=== PATIENT | female | born 1945 | race Caucasian/White ===

== ENCOUNTER 2018-02-22 14:48 | Observation (INO) ==
[2018-02-22] MEDS ORDERED: hydrALAZINE 10 MG TABLET PO PRN (17:59)
[2018-02-22] MEDS ORDERED: Naloxone 0.4 MG/ML INJ IVP PRN (18:02)
--- NOTE | 2018-02-22 18:13 | Internal Med History&Physical ---
Date of Encounter: 02/22/18 Time of Encounter: 18:06 Internal Medicine - H&P: HPI Chief complaint: atypical chest pain; HTN urgency Admitted From: Home Plans for Post Hospital Care: Home History of present illness: Ms. Jim is a 72 year old female with a PMH of HTN, Hepatitis, and COPD. She presents to [facility] with c/o atypical, midsternal dull chest pressure without radiation rated 3/10. She admits to lightheadedness, orthopnea, and mild h/a but denies any dyspnea, vision changes, N/V/D, unilateral extremity swelling or pain. She denies any aggravating or alleviating factors. She reports that the chest pressure began last night but got progressively worse this morning. She decided to check her BP and notes that she was hypertensive with BP in 200's/100's. She then decided to seek care at an urgent care. While at she was given 324 chewable ASA and sent to [facility] for further evaluation. EKG completed at [facility] was without ischemic changes. Initial troponin was < 0.03. She was still having HTN urgency and she was transferred to [facility] for further monitoring. During my assessment she denies any prior cardiac history. She does admit to having an episode of chest pain approximately 10 years ago while in [place]. She had a negative stress during that workup and has had no issues since. She is being admitted for further observation of HTN urgency and workup of atypical chest pain. Past Med Surg Social Fam HX - Past Medical History Medical history: COPD, hepatitis, hypertension, other Psychiatric history: no psych history - Past Surgical History Surgical History: cholecystectomy Additional surgical history: breast biopsy, bladder sling - Social History Smoking Status: Former smoker Smokeless Tobacco Status: No Alcohol use: occasionally Drug use: none - Family History Mother Living Status: Hx Family Cardiac Disorders: Yes Hx Family Endocrine Disorder: Yes Father Hx Family Endocrine Disorder: Yes (DM) Internal Medicine - H&P: Meds Atenolol 50 mg PO DAILY 02/22/18 [History] Desoximetasone 02/22/18 [History] Ventolin Hfa 02/22/18 [History] amLODIPine 5 mg PO DAILY 02/22/18 [History] Allergy/AdvReac Type Severity Reaction Status Date / Time Sulfa (Sulfonamide Allergy Anaphylaxis Verified 02/22/18 13:23 Antibiotics) All Systems PM: A 10-system review of systems was performed and is negative for pertinent findings except as documented above in the HPI. - Constitutional Constitutional: as per HPI - Cardiovascular Cardiovascular ROS IM: as per HPI - Respiratory Respiratory: as per HPI - Gastrointestinal Gastrointestinal: as per HPI - Genitourinary Genitourinary: as per HPI - Musculoskeletal Musculoskeletal ROS IM: as per HPI - Integumentary Integumentary IM: as per HPI - Neurological Neurological ROS: as per HPI - Constitutional Vitals: Temp Pulse Resp BP Pulse Ox 97.6 F 54 18 176/97 96 02/22/18 17:19 02/22/18 17:19 02/22/18 17:19 02/22/18 18:00 02/22/18 17:19 General appearance: Present: A&O X 3 Exam: see exam - Head Head exam: Present: atraumatic, normocephalic - Eye Eye exam: Present: PERRL, conjuntiva pink, sclera anicteric Pupils: Present: PERRL - Neck Neck exam general surgery: Present: supple, trachea midline. Absent: lymphadenopathy - Respiratory Respiratory exam: Present: CTAB. Absent: accessory muscle use, chest wall tenderness, rales, rhonchi, wheezes - Cardiovascular Cardiovascular exam: Present: bradycardia, +S1, +S2. Absent: diastolic murmur, gallop, rubs, systolic murmur - GI/Abdominal GI/Abdominal exam: Present: normal bowel sounds, soft, no peritoneal signs. Absent: distended, tenderness - Extremities Exam Extremities exam: Present: warm, radial pulses palpable and symmetrical. Absent: calf tenderness, cyanotic, pedal edema - Neurological Exam Neurological exam: Present: CN II-XII intact, oriented X3, no focal deficits. Absent: pronater drift, facial droop, speech deficit - Skin Skin exam: Present: dry, intact Internal Med - H&P Results - EKG Data -: EKG Interpreted by Myself EKG shows normal: sinus rhythm Rate: bradycardia - EKG Data Prior EKG available for review: no EKG comments: Sinus bradycardia without ischemic changes per my review 02/22/18 18:14 - Impressions per my review CXR is without acute process - Assessment and plan (1) Chest pain Current Visit: No Status: Acute Assessment and plan: Atypical Chest pain/pressure which began yesterday No prior history of CAD Admitted with hypertensive urgency; likely contributing to pressure EKG with help ischemic changes, initial troponin negative Continue to trend troponins Cardiogram in the morning Control BP; responded to 1 when necessary dose of IV hydralazine, start oral hydralazine Continue beta nupur at current dose, can uptitrate due to bradycardia We will increase Norvasc that morning dose to 10 mg daily Continue monitor on telemetry Recent lipid panel including hypertriglyceridemia otherwise normal Subcutaneous heparin for DVT prophylaxis Recheck labs in the morning echo in am Qualifiers: Chest pain type: unspecified Qualified Code(s): R07.9 - Chest pain, unspecified (2) Hypertensive urgency Current Visit: Yes Status: Acute Assessment and plan: etiology unclear denies missing any doses of anti-HTN meds denies any recent medication changes reports normal SBP 130's but admits she does not regularly check it SBP in 200's at [facility] and 190's on arrival to [facility] improved to 170's with 10mg IV Hydralazine; continue PRN and monitor cannot increase BB dose with bradycardia start oral hydralazine Continue norvasc but increase dose to 10mg daily consider starting nicardipine gtt if HTN persists (3) COPD (chronic obstructive pulmonary disease) Current Visit: Yes Status: Acute Assessment and plan: per hx not in acute exacerbation Qualifiers: Qualified Code(s): J44.9 - Chronic obstructive pulmonary disease, unspecified (4) Hypertension Current Visit: No Status: Acute Assessment and plan: as above Qualifiers: Hypertension type: unspecified Qualified Code(s): I10 - Essential (primary) hypertension (5) New-onset angina Current Visit: No Status: Acute Assessment and plan: as above - Time Spent With Patient Total time spent is greater than 50% in coordination of care (as documented) at patient's floor/unit and/or counseling patient: less than 15 minutes
[2018-02-22] MEDS ORDERED: Ibuprofen 400 MG TABLET PO ONE (21:29)
[2018-02-23 00:55] LABS: Hematocrit 43.5 % (35.3-44.9); Hemoglobin 14.6 g/dL (11.5-15.4); Mean Corpuscular HGB Conc 33.6 g/dL (31.6-35.5); Mean Corpuscular Hemoglobin 32.6 pg (28.0-33.3); Mean Corpuscular Volume 97.1 fL (83.0-100.0); Mean Platelet Volume 9.9 fL (9.4-12.4); Platelet Count 129 K/mcL (140-400); Red Blood Count 4.48 M/mcL (3.82-4.97); Red Cell Distribution Width 13.8 % (11.5-14.5)
[2018-02-23 01:12] LABS: BUN/Creatinine Ratio 10 (6-26); Blood Urea Nitrogen 7 mg/dL (8-23); Calcium 9.4 mg/dL (8.6-10.3); Carbon Dioxide 25 mEq/L (23-29); Chloride 103 mEq/L (98-107); Glucose 149 mg/dL (70-105); Osmolality,Calculated 287 (280-300); Potassium 3.6 mEq/L (3.5-5.1); Sodium 138 mEq/L (136-145); eGFR For Non-African Americans > 60 (> 60)
[2018-02-23] MEDS: amLODIPine 5 MG TABLET PO SCH (08:10)
--- NOTE | 2018-02-23 08:33 | Internal Med Progress Note ---
Hospitalist Progress Note - Encounter Date of Encounter: 02/23/18 Time of Encounter: 08:31 - Subjective Interval History: Skin exam the bedside today. Admitted yesterday for atypical chest pain/pressure and hypertensive urgency. She reports that the chest pressure has subsided. Blood pressure has improved with the addition of losartan and increase in Norvasc dose. She does remain mildly hypertensive, require further monitoring and observation overnight especially in the setting of increased antihypertensive agents. - Exam Vitals: Temp Pulse Resp BP Pulse Ox 97.7 F 59 16 164/100 92 02/23/18 08:27 02/23/18 08:27 02/23/18 08:27 02/23/18 08:27 02/23/18 08:27 Exam: PHYSICAL EXAMINATION: GENERAL: The patient is an elderly female , NAD, and O 3 HEENT: Head is normocephalic and atraumatic. Extraocular muscles are intact. Pupils are equal, round, and reactive to light and accommodation. NECK: Supple. No carotid bruits. No lymphadenopathy or thyromegaly. LUNGS: Clear to auscultation B/L AP and L. HEART: Regular rate and rhythm, S1, S2 without murmur, rubs or gallops. No chest wall tenderness, symmetrical and Claudio, adequate rise and fall, ABDOMEN: Soft, nontender, and nondistended. Positive bowel sounds. No hepatosplenomegaly was noted. EXTREMITIES: Without any cyanosis, clubbing, rash, lesions or edema. NEUROLOGIC: Cranial nerves II through XII are grossly intact. PSYCHIATRIC: Appropriate affect, denies SI/HI, without agitation or anxiety SKIN: No ulceration or induration present. - Assessment and Plan (1) Chest pain Current Visit: No Status: Resolved Assessment and Plan: Atypical Chest pain/pressure which began yesterday No prior history of CAD Admitted with hypertensive urgency; likely contributing to pressure EKG with help ischemic changes, initial troponin negative Continue to trend troponins Cardiogram in the morning Control BP; responded to 1 when necessary dose of IV hydralazine, start oral hydralazine Continue beta nupur at current dose, can uptitrate due to bradycardia We will increase Norvasc that morning dose to 10 mg daily Continue monitor on telemetry Recent lipid panel including hypertriglyceridemia otherwise normal Subcutaneous heparin for DVT prophylaxis Recheck labs in the morning echo in am 02/23--reports that she is no longer having chest pain. Clinically, the patient remains stable and blood pressure is improving. I believe that the hypertensive urgency was resulting in the chest pressure sensations as the pain/pressure did resolve with improvement in blood pressure. She will need further monitoring and observation overnight for further control of BP and titration of anti hypertensive agents. (2) Hypertensive urgency Current Visit: Yes Status: Acute Assessment and Plan: etiology unclear denies missing any doses of anti-HTN meds denies any recent medication changes reports normal SBP 130's but admits she does not regularly check it SBP in 200's at [facility] and 190's on arrival to [facility] improved to 170's with 10mg IV Hydralazine; continue PRN and monitor cannot increase BB dose with bradycardia start oral hydralazine Continue norvasc but increase dose to 10mg daily consider starting nicardipine gtt if HTN persists 02/23--start patient on losartan and increased dose of Norvasc. Continue to monitor. Blood pressure improving (3) COPD (chronic obstructive pulmonary disease) Current Visit: Yes Status: Acute Assessment and Plan: Per history, not in acute exacerbation (4) Hypertension Current Visit: No Status: Acute Assessment and Plan: As above (5) New-onset angina Current Visit: No Status: Resolved DVT Prophylaxis: Ambulate and increase activity - Time Spent with Patient Total time spent is greater than 50% in coordination of care (as documented) at patient's floor/unit and/or counseling patient: less than 15 minutes Plan of Care Discussed with: patient Internal Medicine: Result - Labs CBC & Chem 7: 02/23/18 00:40 02/23/18 00:40 Labs: Short CBC 02/23/18 Range/Units 00:40 WBC 6.5 (4.3-11.1) K/mcL Hgb 14.6 (11.5-15.4) g/dL Hct 43.5 (35.3-44.9) % Plt Count 129 L (140-400) K/mcL BMP 02/23/18 00:40 Sodium 138 Potassium 3.6 Chloride 103 Carbon Dioxide 25 BUN 7 L Creatinine 0.70 Glucose 149 H Calcium 9.4 Cardiac Enzymes 02/22/18 02/23/18 02/23/18 Range/Units 18:29 00:40 05:56 Troponin I < 0.03 < 0.03 < 0.03 (< 0.04) ng/mL Consult Discharge Plan - Plan Referrals: Delano Mckeon MD [Primary Care Provider] - (1) Chest pain Qualifiers: Chest pain type: unspecified Qualified Code(s): R07.9 - Chest pain, unspecified (3) COPD (chronic obstructive pulmonary disease) Qualifiers: Qualified Code(s): J44.9 - Chronic obstructive pulmonary disease, unspecified (4) Hypertension Qualifiers: Hypertension type: unspecified Qualified Code(s): I10 - Essential (primary) hypertension
[2018-02-23] MEDS ORDERED: hydrALAZINE 25 MG TABLET PO SCH (18:23)
[2018-02-24 07:09] VITALS: BP 135/77
[2018-02-24] MEDS: amLODIPine 5 MG TABLET PO SCH (08:11)
[2018-02-24 08:40] LABS: eGFR For Non-African Americans > 60 (> 60)
--- NOTE | 2018-02-24 09:03 | Discharge Summary ---
- NOTES TO OUTPATIENT PROVIDER Notes to Outpatient Provider: basic d/c f/u Date of Encounter: 02/24/18 Time of Encounter: 09:00 - Discharge Diagnosis (1) Chest pain Priority: Primary Status: Ruled-out Qualifiers: Chest pain type: unspecified Qualified Code(s): R07.9 - Chest pain, unspecified (2) Hypertensive urgency Priority: Secondary Status: Resolved (3) COPD (chronic obstructive pulmonary disease) Priority: Secondary Status: Acute Qualifiers: Qualified Code(s): J44.9 - Chronic obstructive pulmonary disease, unspecified (4) Hypertension Priority: Secondary Status: Acute Qualifiers: Hypertension type: unspecified Qualified Code(s): I10 - Essential (primary) hypertension (5) New-onset angina Priority: Secondary Status: Resolved Hospital course: Ms. Jim is a 72 year old female with hypertensive urgency and chest pressure. Chest pressure improved with improvement in blood pressure. She was started on losartan and her dose of amlodipine was increased. Blood pressures remained stable throughout overnight monitoring and she continues to be chest pain-free. It should be noted that EKG on admission was without ischemic changes and serial troponins were found to be negative. No events noted on telemetry. She is being discharged with increased dose of antihypertensive medication and has been instructed to follow-up with PCP. Discharge discussed with: patient, nurse - Time Spent with Patient Total time spent providing and/or coordinating discharge services: Less than 30 minutes - Discharge Medications Prescriptions: amLODIPine [Norvasc] 10 mg PO DAILY 30 Days #60 tablet Losartan [Cozaar] 12.5 mg PO DAILY 30 Days #15 tablet Home Medications: Albuterol Sulfate [Ventolin Hfa] 1 puff IH Q4H PRN 02/23/18 [History] Atenolol [Tenormin] 50 mg PO DAILY 02/23/18 [History] Cholecalciferol (D-3) [Vitamin D] 1,000 unit PO DAILY 02/23/18 [History] Cholestyramine 4 gm PO DAILY PRN 02/23/18 [History] Losartan [Cozaar] 12.5 mg PO DAILY 30 Days #15 tablet 02/24/18 [Rx] amLODIPine [Norvasc] 10 mg PO DAILY 30 Days #60 tablet 02/24/18 [Rx] Allergies/Adverse Reactions: Allergy/AdvReac Type Severity Reaction Status Date / Time Sulfa (Sulfonamide Allergy Anaphylaxis Verified 02/22/18 13:23 Antibiotics) Date of admission: 02/22/18 16:49 Primary care physician: Delano Mckeon MD Discharging clinician: Sanjiv Butler Anticipated date of discharge: 02/24/18 - Constitutional Vitals: Temp Pulse Resp BP Pulse Ox 98.0 F 55 16 135/77 95 02/24/18 07:08 02/24/18 07:08 02/24/18 07:08 02/24/18 07:08 02/24/18 07:08 General appearance: Present: A&O X 3 Exam: PHYSICAL EXAMINATION: GENERAL: The patient is an elderly female , NAD, and O 3 HEENT: Head is normocephalic and atraumatic. Extraocular muscles are intact. Pupils are equal, round, and reactive to light and accommodation. NECK: Supple. No carotid bruits. No lymphadenopathy or thyromegaly. LUNGS: Clear to auscultation B/L AP and L. HEART: RRR, S1, S2 without murmur, rubs or gallops. No chest wall tenderness, symmetrical and Claudio, adequate rise and fall, ABDOMEN: Soft, nontender, and nondistended. Positive bowel sounds. No hepatosplenomegaly was noted. EXTREMITIES: Without any cyanosis, clubbing, rash, lesions or edema. NEUROLOGIC: Cranial nerves II through XII are grossly intact. PSYCHIATRIC: Appropriate affect, denies SI/HI, without agitation or anxiety SKIN: No ulceration or induration present. - Patient Status Disposition: Home, Self-Care Condition: Good Functional capacity at discharge: independent ambulation Overall status at discharge: patient is back to baseline - Discharge Instructions Instructions: Chest Pain (DC), Chronic Hypertension (DC) Follow Up With: Delano Mckeon MD [Primary Care Provider] - 03/04/18 12:20 pm - Diet and Activity Activity: increase activity as tolerated, resume usual activities as tolerated Diet: diabetic diet, low fat, low cholesterol, low salt diet
== END 2018-02-24 10:55 | disposition home or self-care (01) ==
LOC: 3BNU
PROVIDERS: ADMIT Internal Medicine; ATTEND Internal Medicine